=== PATIENT | female | born 1985 | race Caucasian/White ===

== ENCOUNTER 2018-01-08 18:44 | Emergency (ER) | payer SELFPAY ==
[2018-01-08 19:27] LABS: Urine Blood 3+ (NEG); Urine Glucose NEGATIVE (NEG); Urine Protein 1+ (NEG); Urine Specific Gravity >1.030 (1.005-1.030); Urine pH 5.5 (5.0-7.0)
[2018-01-08 20:04] LABS: Barbiturates NEGATIVE (NEGATIVE); Benzodiazepines NEGATIVE (NEGATIVE); Cocaine NEGATIVE (NEGATIVE); METHAMPHETAM NEGATIVE (NEGATIVE); Methadone NEGATIVE (NEGATIVE); Opiates NEGATIVE (NEGATIVE); Phencyclidine NEGATIVE (NEGATIVE); THC Cannibis POSITIVE (NEGATIVE)
[2018-01-08 20:30] LABS: Protime INR 1.14
[2018-01-08 20:37] LABS: Absolute Lymphocytes (CBC) 1.1 K/uL (0.7-4.9); Absolute Neutrophil 13.6 K/uL (1.8-8.0); Basophils % 0.1 % (0-1.3); Eosinophils % 0.7 % (0-4.4); Hematocrit 34.9 % (36.0-45.0); Lymphocytes % 6.8 % (15.3-44.8); MCH 29.7 pg (27.0-35.0); MCV 87.2 fL (80-100); MPV 9.4 fL (7.6-11.3); Monocytes % 6.5 % (3.3-12.3)
[2018-01-08] MEDS ORDERED: HYDROCODONE/APAP 7.5/325 MG TAB ONE (20:37)
[2018-01-08 21:15] LABS: ALT/SGPT 18 U/L (12-78); AST/SGOT 13 U/L (15-37); Albumin 3.8 g/dL (3.4-5.0); Alcohol Serum/Plasma < 3 mg/dL (<3); Alkaline Phosphatase 78 U/L (45-117); BUN Blood Urea Nitrogen 7 mg/dL (7-18); Bicarbonate 23 mmol/L (21-32); Bilirubin Direct 0.1 mg/dL (0-0.2); Bilirubin Total 0.5 mg/dL (0.2-1.0); Glucose Level 103 mg/dL (74-106); Lipase 77 U/L (73-393); Potassium 3.4 mmol/L (3.5-5.1); Protein, Total 7.3 g/dL (6.4-8.2); Sodium Level 140 mmol/L (136-145)
[2018-01-08 21:21] LABS: Blood Morphology Comment NOT SEEN (NOT SEEN); Platelet Estimate ADEQ; Urine White Blood Cell Casts OK
[2018-01-08] MEDS ORDERED: POTASSIUM CL SA 10 MEQ TAB PO ONE (21:39)
[2018-01-09 06:44] LABS: Absolute Lymphocytes (CBC) 1.6 K/uL (0.7-4.9); Absolute Monocytes 1.5 K/uL (0.1-1.3); Absolute Neutrophil 8.2 K/uL (1.8-8.0); Basophils % 0.3 % (0-1.3); Hematocrit 35.7 % (36.0-45.0); Lymphocytes % 13.9 % (15.3-44.8); MCH 29.8 pg (27.0-35.0); MPV 10.1 fL (7.6-11.3); RBC Red Blood Cell Count 4.15 M/uL (3.86-4.86)
--- NOTE | 2018-01-09 06:45 | EKG ---
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
[2018-01-09] MEDS ORDERED: IBUPROFEN 400 MG TAB ONE ×2 (07:19→18:13)
[2018-01-09 08:22] LABS: Platelet Estimate ADEQ
[2018-01-09 08:23] LABS: Blood Morphology Comment NOT SEEN (NOT SEEN)
--- NOTE | 2018-01-09 13:58 | EDPHYS ---
Physician Documentation [facility] Name: Arleen Bedolla Age: 32 yrs Sex: Female : 1985 Arrival Date: 01/08/2018 Time: 18:46 Bed 18 Private MD: ED Physician Mark Vann HPI: 01/08 21:38 This 32 yrs old Female presents to ER via EMS with complaints of Suicidal jr8 Ideation. 21:38 The patient presents to the emergency department with depression, suicide ideation, and jr8 the patient has a plan, wants to jump off of bridge or get hit by a car. Onset: The symptoms/episode began/occurred acutely, today. Past psychiatric history: Prior diagnosis: bipolar disorder, schizophrenia. Associated signs and symptoms: The patient has no apparent associated signs or symptoms. Severity of symptoms: At their worst the symptoms were moderate in the emergency department the symptoms are unchanged. The patient has experienced a previous episode. The patient has not recently seen a physician. Stated that after being in argument feels suicidal . 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 - Ebola Screening: : Patient negative for fever greater than or equal to 101.5 degrees Fahrenheit, and additional compatible Ebola Virus Disease symptoms Patient denies exposure to infectious person Patient denies travel to an Ebola-affected area in the 21 days before illness onset No symptoms or risks identified at this time. - Social history:: Smoking status: Patient/guardian denies using tobacco. ROS: 21:38 Eyes: Negative for injury, pain, redness, and discharge, ENT: Negative for injury, jr8 pain, and discharge, Neck: Negative for injury, pain, and swelling, Cardiovascular: Negative for chest pain, palpitations, and edema, Respiratory: Negative for shortness of breath, cough, wheezing, and pleuritic chest pain, Abdomen/GI: Negative for abdominal pain, nausea, vomiting, diarrhea, and constipation, Back: Negative for injury and pain, MS/Extremity: Negative for injury and deformity, Skin: Negative for injury, rash, and discoloration, Neuro: Negative for headache, weakness, numbness, tingling, and seizure. 21:38 Psych: Positive for depression, suicidal ideation, Negative for auditory hallucinations, visual hallucinations, homicidal ideation, insomnia, suicide gesture. Exam: 21:38 Eyes: Pupils equal round and reactive to light, extra-ocular motions intact. Lids and jr8 lashes normal. Conjunctiva and sclera are non-icteric and not injected. Cornea within normal limits. Periorbital areas with no swelling, redness, or edema. ENT: Nares patent. No nasal discharge, no septal abnormalities noted. Tympanic membranes are normal and external auditory canals are clear. Oropharynx with no redness, swelling, or masses, exudates, or evidence of obstruction, uvula midline. Mucous membranes moist. Neck: Trachea midline, no thyromegaly or masses palpated, and no cervical lymphadenopathy. Supple, full range of motion without nuchal rigidity, or vertebral point tenderness. No Meningismus. Cardiovascular: Regular rate and rhythm with a normal S1 and S2. No gallops, murmurs, or rubs. Normal PMI, no JVD. No pulse deficits. Respiratory: Lungs have equal breath sounds bilaterally, clear to auscultation and percussion. No rales, rhonchi or wheezes noted. No increased work of breathing, no retractions or nasal flaring. Abdomen/GI: Soft, non-tender, with normal bowel sounds. No distension or tympany. No guarding or rebound. No evidence of tenderness throughout. Back: No spinal tenderness. No costovertebral tenderness. Full range of motion. Skin: Warm, dry with normal turgor. Normal color with no rashes, no lesions, and no evidence of cellulitis. MS/ Extremity: Pulses equal, no cyanosis. Neurovascular intact. Full, normal range of motion. Neuro: Awake and alert, GCS 15, oriented to person, place, time, and situation. Cranial nerves II-XII grossly intact. Motor strength 5/5 in all extremities. Sensory grossly intact. Cerebellar exam normal. Normal gait. 21:38 Psych: Behavior/mood is suicidal, depressed, Affect is calm, Oriented to person, place, time, Patient having thoughts of suicide. Judgement / Insight is normal. Memory is normal. Delusions/hallucinations are not present. Vital Signs: 19:09 BP 102 / 70; Pulse 89; Resp 16; Temp 98.9(TE); Pulse Ox 99% on R/A; Weight 86.18 kg; iw Height 5 ft. 7 in. (170.18 cm); Pain 3/10; 21:57 BP 109 / 70; Pulse 106; Resp 18; Pulse Ox 97% on R/A; oe 01/09 00:02 BP 103 / 65; Pulse 85; Resp 18; Pulse Ox 100% on R/A; oe 03:17 BP 105 / 70; Pulse 90; Resp 18; Pulse Ox 100% on R/A; oe 07:03 BP 105 / 64; Pulse 95; Resp 18; Pulse Ox 97% on R/A; oe 11:08 BP 93 / 55 Supine; Pulse 83; Resp 16; Temp 97.6(O); Pulse Ox 98% on R/A; mh5 15:10 BP 96 / 64; Pulse 90; Resp 15; Pulse Ox 98% on R/A; 5 17:29 BP 105 / 75; Pulse 86; Resp 18; Pulse Ox 100% on R/A; 5 21:09 BP 103 / 50; Pulse 78; Resp 17; Pulse Ox 98% on R/A; mw2 01/10 01:11 BP 108 / 75; Pulse 68; Resp 17; Pulse Ox 98% on R/A; mw2 05:15 BP 98 / 70; Pulse 70; Resp 16; Pulse Ox 98% on R/A; mw2 09:01 BP 102 / 74; Pulse 74; Resp 14; Pulse Ox 100% on R/A; em1 13:39 BP 98 / 53; Pulse 75; Resp 17; Pulse Ox 100% on R/A; mh5 16:37 BP 100 / 68; Pulse 65; Resp 18; Pulse Ox 98% on R/A; mh5 20:37 BP 98 / 54; Pulse 68; Resp 16; Pulse Ox 99% on R/A; cc1 22:41 BP 108 / 64; Pulse 72; Resp 16; Pulse Ox 100% on R/A; cc1 01/11 01:04 BP 106 / 72; Pulse 72; Resp 16; Pulse Ox 100% on R/A; cc1 05:33 BP 102 / 62; Pulse 73; Resp 16; Pulse Ox 97% on R/A; Pain 8/10; oe 07:03 Temp 98.1(O); lp1 09:42 BP 102 / 61; Pulse 76; Resp 18; Pulse Ox 100% ; ms 12:40 rb1 01/08 19:09 Body Mass Index 29.76 (86.18 kg, 170.18 cm) iw 12:40 Pt. refused vital signs. rb1 MDM: 01/08 19:20 Patient medically screened. jr8 01/11 11:32 Data reviewed: vital signs, nurses notes, lab test result(s), EKG. Data interpreted: jr8 Pulse oximetry: on room air is 97 %. Interpretation: normal. Counseling: I had a detailed discussion with the patient and/or guardian regarding: the historical points, exam findings, and any diagnostic results supporting the discharge/admit diagnosis, lab results. ED course: Patient has been here for 2 and a 1/2 days now. Stated that she feels better and wants to go home. No longer suicidal. Will f/u on outpatient basis. [facility] was contacted and reassessed her last night. We talked to them as well today and are very comfortable with her following up on out patient basis . 01/08 19:21 Order name: Acetaminophen; Complete Time: 21:18 [facility] 01/08 19:21 Order name: Basic Metabolic Panel; Complete Time: 21:18 [facility] 01/08 19:21 Order name: CBC with Diff; Complete Time: 21:43 [facility] 01/08 19:21 Order name: ETOH Level; Complete Time: 21:18 [facility] 01/08 19:21 Order name: Hepatic Function; Complete Time: 21:18 [facility] 01/08 19:21 Order name: PT-INR; Complete Time: 20:31 [facility] 01/08 19:21 Order name: Ptt, Activated; Complete Time: 20:31 [facility] 01/08 19:21 Order name: Salicylate; Complete Time: 20:59 [facility] 01/08 19:21 Order name: Urine Drug Screen; Complete Time: 20:31 [facility] 01/08 19:21 Order name: Lipase; Complete Time: 21:18 [facility] 01/08 19:24 Order name: Urine Dipstick--Ancillary (enter results) [facility] 01/08 19:24 Order name: Urine --Ancillary (enter results) [facility] 01/08 19:24 Order name: Urine Dipstick-Ancillary; Complete Time: 19:30 [facility] 01/08 19:24 Order name: Urine --Ancillary; Complete Time: 19:30 [facility] 01/08 19:21 Order name: EKG; Complete Time: 19:22 [facility] 01/08 20:38 Order name: CBC Smear Scan; Complete Time: 21:43 [facility] 01/09 02:36 Order name: CBC with Manual Differential: repeat at 0600; Complete Time: 10:12 bs1 01/09 07:15 Order name: Diet Regular; Complete Time: 07:16 [facility] 01/08 19:21 Order name: Urine Test (obtain specimen); Complete Time: 19:23 [facility] 01/08 19:21 Order name: EKG - Nurse/Tech; Complete Time: 19:35 [facility] 01/08 19:21 Order name: Urine Dipstick-Ancillary (obtain specimen); Complete Time: 19:23 [facility] 01/09 09:21 Order name: Diet Regular; Complete Time: 09:22 [facility] 01/09 12:02 Order name: Diet Regular; Complete Time: 12:02 01/09 15:38 Order name: Diet Regular; Complete Time: 15:39 [facility] 01/09 18:15 Order name: Diet Regular; Complete Time: 18:15 [facility] 01/10 08:00 Order name: Diet Regular; Complete Time: 08:01 01/10 11:08 Order name: Finger Food [facility] 01/10 15:37 Order name: Diet Regular; Complete Time: 15:37 [facility] 01/11 07:15 Order name: Diet Finger Food; Complete Time: 07:16 rb1 01/11 12:06 Order name: Diet Finger Food; Complete Time: 12:06 rb1 Administered Medications: 01/08 19:36 Not Given (Patient Refused): NS 0.9% 1000 ml IV at 1000 ml once bp 20:35 Drug: Gaylord (7.5 mg-325 mg) 1 tabs Route: PO; bp 21:29 Follow up: Response: Pain is decreased bp 21:50 Drug: Potassium Chloride 20 mEq Route: PO; bp 22:12 Follow up: Response: No adverse reaction bp 01/09 07:56 Drug: Motrin 800 mg Route: PO; jl7 08:30 Follow up: Response: No adverse reaction; Pain is decreased jl7 18:11 Drug: Motrin 600 mg Route: PO; jl7 01/10 01:00 Follow up: Response: Pain is decreased bp 01/09 21:00 Drug: Gaylord (7.5 mg-325 mg) 1 tabs Route: PO; bp 01/10 01:00 Follow up: Response: Pain is decreased bp 07:53 Drug: Ibuprofen 800 mg Route: PO; ch 07:59 Follow up: Response: No adverse reaction; Marked relief of symptoms ch 15:20 Drug: Motrin 600 mg Route: PO; iw 18:56 Follow up: Response: No adverse reaction ph 20:52 Drug: Tylenol 500 mg Route: PO; lp1 22:42 Follow up: Response: No adverse reaction lp1 01/11 01:36 Drug: Motrin 600 mg Route: PO; lp1 02:30 Follow up: Response: No adverse reaction lp1 07:58 Not Given (changed order to 800 mg PO): Motrin 600 mg PO once rb1 08:00 Drug: Motrin 800 mg Route: PO; rb1 Disposition: 17:37 Co-signature as Attending Physician, Mark Vann MD I agree with the assessment and annette plan of care. Disposition: 01/11/18 12:43 Discharged to Home. Impression: Major depressive disorder, recurrent severe without psychotic features, Suicidal ideations. - Condition is Stable. - Discharge Instructions: Suicidal Feelings: How to Help Yourself, Helping Someone Who is Suicidal, Stress and Stress Management, Persistent Depressive Disorder, Major Depressive Disorder, [id number]. - Medication Reconciliation Form, Thank You Letter, Antibiotic Education, Prescription Opioid Use form. - Follow up: Private Physician; When: 2 - 3 days; Reason: Recheck today's complaints, Continuance of care, Re-evaluation by your physician. - Problem is new. - Symptoms are resolved. Signatures: Dispatcher [employer] EDMS Marilee Block RN RN ch Anderson, Corey, MD MD cha Williams, Irene, RN RN iw Rhoda Mirza RN RN lp1 Neil Reyes PA PA jr8 Naomie Parr RN RN rb1 Marie Styles RN RN jl7 Jesus Potter RN RN bp Hall, Patricia RN ph Corrections: (The following items were deleted from the chart) 01/08 19:36 19:21 IV Saline Lock ordered. jr8 bp 19:37 19:21 Labs collected and sent ordered. jr8 bp 01/10 10:28 01/08 19:09 PMHx: None; iw 01/11 12:43 01/09 13:58 01/09/2018 13:58 Transfer ordered to Psych Facility. Diagnosis is Suicidal jr8 ideations. Reason for transfer: Higher level of care. Accepting physician is to psych. Condition is Stable. Problem is new. Symptoms have improved. [facility] 01/11 13:08 12:43 01/11/2018 12:43 Discharged to Home. Impression: Major depressive disorder, rb1 recurrent severe without psychotic features; Suicidal ideations. Condition is Stable. Forms are Medication Reconciliation Form, Thank You Letter, Antibiotic Education, Prescription Opioid Use. Follow up: Private Physician; When: 2 - 3 days; Reason: Recheck today's complaints, Continuance of care, Re-evaluation by your physician. Problem is new. Symptoms are resolved. jr8
--- NOTE | 2018-01-09 13:58 | ER ---
Nurse's Notes [facility] Name: Arleen Bedolla Age: 32 yrs Sex: Female : 1985 Arrival Date: 01/08/2018 Time: 18:46 Bed 18 Private MD: Diagnosis: Major depressive disorder, recurrent severe without psychotic features;Suicidal ideations Presentation: 01/08 19:02 Presenting complaint: Patient states: "I've had suicidal thoughts all day, I got into a iw fight with my adoptive dad and I've been staying with a friend in [place], she [place] me off at the beach and I've been sitting at the beach all day" denies previous attempt, +hx of suicidal ideation, thoughts of jumping off bridge, pt also states she is hearing voices that sometimes make her angry but cannot tell me what they say, also sees "lights and shadows", pt also states she has RUQ pain that started about an hour ago, denies n/v/d, EMS reported that pt told them she has hx of cholecystectomy but still has pain from time to time from the scar tissue. Transition of care: patient was not received from another setting of care. Onset of symptoms was January 08, 2018. Risk Assessment: Do you want to hurt yourself or someone else? Patient reports desire/thoughts of hurting themselves or someone else. Provider notified. Initial Sepsis Screen: Does the patient meet any 2 criteria? No. Patient's initial sepsis screen is negative. Does the patient have a suspected source of infection? No. Patient's initial sepsis screen is negative. Care prior to arrival: None. 19:02 Method Of Arrival: EMS: [facility] iw 19:02 Acuity: AVILA 2 iw Triage Assessment: 19:15 General: Appears in no apparent distress. comfortable, obese, Behavior is cooperative, bp appropriate for age, anxious. General: Behavior is flat. Pain: Complains of pain in right upper quadrant. EENT: No deficits noted. Neuro: Level of Consciousness is awake, alert, obeys commands, Oriented to person, place, time, situation. Cardiovascular: No deficits noted. Respiratory: Airway is patent Respiratory effort is even, unlabored, Respiratory pattern is regular, symmetrical. GI: Patient currently denies diarrhea, nausea, vomiting. : No signs and/or symptoms were reported regarding the genitourinary system. Derm: No deficits noted. Musculoskeletal: Circulation, motion, and sensation intact. Range of motion: intact in all extremities. 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 - Ebola Screening: : Patient negative for fever greater than or equal to 101.5 degrees Fahrenheit, and additional compatible Ebola Virus Disease symptoms Patient denies exposure to infectious person Patient denies travel to an Ebola-affected area in the 21 days before illness onset No symptoms or risks identified at this time. - Social history:: Smoking status: Patient/guardian denies using tobacco. Screenin:17 Abuse screen: Denies threats or abuse. Denies injuries from another. Nutritional bp screening: No deficits noted. Tuberculosis screening: No symptoms or risk factors identified. Fall Risk None identified. Assessment: 19:15 General: PT RETURNED FROM SHOWER, PT STATES SI WITHOUT GESTURE/ATTEMPT 2/2 FAMILY bp STRESSORS. UNKNOWN PSYCH HX. 19:35 Reassessment: PT REFUSED PIV AND BLOOD DRAW, MD NOTIFIED. bp 19:48 Reassessment: PROVIDER SPOKE WITH PT. PT NOW AGREES TO LAB DRAW WITHOUT PIV. bp 23:47 Reassessment: [facility] SCREENER AT B/S. bp 01/09 01:45 Reassessment: Report received from STEPH Lee. bs1 01:45 General: Appears in no apparent distress. Pain: Denies pain. Neuro: Level of bs1 Consciousness is awake, alert. Cardiovascular: Heart tones S1 S2 present Capillary refill < 3 seconds Patient's skin is warm and dry. Respiratory: Airway is patent Trachea midline Respiratory effort is even, unlabored, Respiratory pattern is regular, symmetrical, Breath sounds are clear. GI: No signs and/or symptoms were reported involving the gastrointestinal system. GI: Bowel sounds present X 4 quads. Abd is soft and non tender X 4 quads. : No signs and/or symptoms were reported regarding the genitourinary system. EENT: No signs and/or symptoms were reported regarding the EENT system. Derm: Skin is intact. Musculoskeletal: Circulation, motion, and sensation intact. Capillary refill < 3 seconds, Range of motion: intact in all extremities. 02:23 Reassessment: [facility] called to speak with nurse to inform of wbc being above 15 and bs1 requesting to redraw labs then they will restart the process. Informed LINDSAY Trejo, gave verbal order to recheck labs in am at 0600. 05:05 Reassessment: Patient sleeping. Even respirations. No further needs at this time. bs1 07:10 Reassessment: Report given to STEPH Salazar. bs1 07:18 Reassessment: ERD notified of sunburn and pt requesting something for pain, see MAR for jl7 orders. Diet tray ordered at this time. General: Appears in no apparent distress. uncomfortable, Behavior is calm, cooperative. Pain: Complains of pain in Sunburn noted to all extremities and face Pain currently is 5 out of 10 on a pain scale. Quality of pain is described as "It just hurts." Is continuous. Neuro: Level of Consciousness is awake, alert, obeys commands, Oriented to person, place, time, situation. Cardiovascular: Heart tones S1 S2 present Patient's skin is warm and dry. Respiratory: Airway is patent Respiratory effort is even, unlabored, Respiratory pattern is regular, symmetrical. GI: Bowel sounds present X 4 quads. Abd is soft and non tender X 4 quads. Patient currently denies diarrhea, nausea, vomiting. : No signs and/or symptoms were reported regarding the genitourinary system. EENT: No signs and/or symptoms were reported regarding the EENT system. Derm: Skin is intact, Skin is dry, Skin is red, Skin temperature is warm. Musculoskeletal: No signs and/or symptoms reported regarding the musculoskeletal system. Range of motion: intact in all extremities. 08:39 Reassessment: Patient and/or family updated on plan of care and expected duration. Pain jl7 level reassessed. Patient is alert, oriented x 3, equal unlabored respirations, skin warm/dry/pink. 09:45 Reassessment: pt laying in bed with eyes closed, respirations even and unlabored, no jl7 signs of distress noted at this time. 11:00 Reassessment: No changes from previously documented assessment. jl7 12:00 Reassessment: Patient appears in no apparent distress at this time. Patient and/or jl7 family updated on plan of care and expected duration. Pain level reassessed. Patient is alert, oriented x 3, equal unlabored respirations, skin warm/dry/pink. 13:00 Reassessment: Patient appears in no apparent distress at this time. Pt laying in bed jl7 with eyes closed, respirations even and unlabored. 14:00 Reassessment: Patient appears in no apparent distress at this time. No changes from jl7 previously documented assessment. 15:00 Reassessment: No changes from previously documented assessment. Patient and/or family jl7 updated on plan of care and expected duration. Pain level reassessed. 18:38 Reassessment: Pt sitting in bed eating. No signs of distress noted at this time. jl7 19:00 Reassessment: RECD REPORT FROM MARIE CHOI. 32YO WF P/W SUNBURN AND SI. UNSPECIFIED PSYCH bp HX. PT CURRENTLY HOMELESS. SEEN BY [facility] LAST PM, INPATIENT RECOMMENDED. SITTER AT B/S, PLACEMENT PENDING. 01/10 00:00 Reassessment: PT SLEEPING, NO ACUTE S/S DISTRESS. SITTER AT B/S, PSYCH TRANSFER PENDING.bp 05:16 Reassessment: PT RE-EVAL BY , MAINTAINS +SI. RESTING QUIETLY, VS STABLE. bp 07:38 Reassessment: Patient appears in no apparent distress at this time. Patient and/or ch family updated on plan of care and expected duration. Pain level reassessed. Patient is alert, oriented x 3, equal unlabored respirations, skin warm/dry/pink. 07:55 Reassessment: Patient appears in no apparent distress at this time. pt states her ch sunburn hurts, pt medicated per orders, given some Neosporin ointment she can apply. pt is AAOX4, states she still wants to kill herself by jumping off a bridge. states she thinks she is hearing things, but cannot tell what they say. denies having attempted suicide before, but states she thinks about it often. pt states she has a hx of bipolar, schizophrenia, add, adhd, and depression. states she is not on any medications at this time for any psych issues. pt states if she leaves she wants to kill herself. 07:55 Respiratory: Airway is patent Respiratory effort is even, unlabored, Breath sounds are ch clear bilaterally. 10:27 Reassessment: Patient appears in no apparent distress at this time. Patient and/or ch family updated on plan of care and expected duration. Pain level reassessed. Patient is alert, oriented x 3, equal unlabored respirations, skin warm/dry/pink. pt ate her breakfast, awaiting transfer. no changes. 12:30 Reassessment: Patient appears in no apparent distress at this time. Patient and/or ph family updated on plan of care and expected duration. Pain level reassessed. Patient is alert, oriented x 3, equal unlabored respirations, skin warm/dry/pink. Pt resting quietly, awaiting transfer. 15:20 Reassessment: pt requesting pain medication for her sunburn, advised pt that she will iw be getting Motrin, pt states "Motrin doesn't work, only ibuprofen works" pt advised that the medications are the same, pt given Motrin 600 PO, pt then states "is that all y'all give to patients with winslow" pt advised that she will only receive Motrin and we can place ointment on her sunburn if she wishes. pt states "I been putting ointment". pt states "I don't need the attitude I was just asking a question". pt laying back in bed, resting with eyes closed. 15:49 Reassessment: pt talking to herself, states she is feeling anxious, was previously on iw clonazepam. 17:33 Reassessment: Patient appears in no apparent distress at this time. Patient and/or iw family updated on plan of care and expected duration. Pain level reassessed. Patient is alert, oriented x 3, equal unlabored respirations, skin warm/dry/pink. pt sitting up in bed eating. 17:41 Reassessment: [facility] reports that they are reviewing the chart at this ss moment. [facility] reports that the nurse is taking care of another patient at this time and will call back within thirty minutes for update. 17:44 Reassessment: [facility] reports that they have no bed available at this time and more than likely will have beds available tomorrow. 17:44 Reassessment: [facility] reports that they have no bed availability at this time. ss 17:44 Reassessment: [facility] reports that they never received ss clinicals, refaxed to [facility]. 19:30 Reassessment: Patient appears in no apparent distress at this time. Patient complaint lp1 of pain related to sunburn to abdomen and shoulders. General: Behavior is calm, cooperative. Respiratory: Respiratory effort is even, unlabored. Derm: Skin is intact, Skin is dry, Skin is red, Skin temperature is warm. 20:30 Reassessment: Patient appears in no apparent distress at this time. No changes from lp1 previously documented assessment. 22:30 Reassessment: Patient appears in no apparent distress at this time. Patient is alert, lp1 oriented x 3, equal unlabored respirations, skin warm/dry/pink. General: Behavior is calm, cooperative. 23:15 Reassessment: [facility] at bedside for re-evaluation. lp1 01/11 01:39 Reassessment: Patient requesting more pain medication at this time due to sunburn. lp1 Reassessment: Patient is alert, oriented x 3, equal unlabored respirations, skin warm/dry/pink. General: Behavior is calm, cooperative. 03:30 Reassessment: Patient resting, eyes closed, respirations unlabored. lp1 06:00 Reassessment: Patient appears in no apparent distress at this time. No changes from lp1 previously documented assessment. 07:00 General: Appears in no apparent distress. comfortable, Behavior is calm, cooperative. rb1 Neuro: Level of Consciousness is awake, alert, obeys commands, Oriented to person, place, time, situation. Cardiovascular: Capillary refill < 3 seconds in bilateral fingers. Respiratory: Airway is patent Respiratory effort is even, unlabored, Respiratory pattern is regular, symmetrical. Derm: Skin is dry, Skin is red, Skin temperature is warm. 08:00 Reassessment: Patient appears in no apparent distress at this time. No changes from rb1 previously documented assessment. Pt. denies having a plan to hurt herself or others. She wishes to be discharged and stated, "I do not want to go to [place]. I did tell them last night that I wanted to hurt myself, but I feel better today." Notified NATALIE Adame of the pt. request and for her to inform Dr. Antunez because I am unable to leave the pt. alone. 09:00 Reassessment: Patient appears in no apparent distress at this time. Patient and/or rb1 family updated on plan of care and expected duration. Pain level reassessed. Patient is alert, oriented x 3, equal unlabored respirations, skin warm/dry/pink. 10:00 Reassessment: Patient appears in no apparent distress at this time. No changes from rb1 previously documented assessment. 11:00 Reassessment: Patient and/or family updated on plan of care and expected duration. Pain rb1 level reassessed. Patient is alert, oriented x 3, equal unlabored respirations, skin warm/dry/pink. 11:47 Reassessment: spoke with [facility] administration to see if they have a bed ss available for patient if she was to be discharged to follow up outpatient. 11:51 Reassessment: [facility] staff states that they do not have any available beds at ss this time at the custodial and to call back at 1700 this evening to see if they had any individuals who did not show. 12:00 Reassessment: Patient appears in no apparent distress at this time. Patient and/or rb1 family updated on plan of care and expected duration. Pain level reassessed. Patient is alert, oriented x 3, equal unlabored respirations, skin warm/dry/pink. Pt. is requesting pain medication; provider notified. 12:52 Reassessment: Patient appears in no apparent distress at this time. No changes from rb1 previously documented assessment. Pt. is wanting to be discharged. Psych: 01/08 19:11 Subjective: Patient's mood is Hallucinations are auditory, visual, Having thoughts of iw suicide. Plan for suicide is jump off a bridge. Objective: Patient is cooperative, Speech is normal, Affect is flat. Interventions: Removed personal items and placed in bag. Patient placed in hospital gown. Suicide Risk Assessment: Sad Person Scale: Sex of patient: Female: Score 0 points. Age of patient: Score 1 point if patient 15-34. Depression: Score 1 point if signs of depression are present. Previous Attempt: Score 0 point if patient has not previously attempted suicide. 01/09 07:15 Safety Checks: Personal items have been removed. Door is open. No visitors are present jl7 at this time. Safety check continued by sitter. Pt denies substance abuse. Commitment: Patient will be a voluntary commitment. Vital Signs: 01/08 19:09 BP 102 / 70; Pulse 89; Resp 16; Temp 98.9(TE); Pulse Ox 99% on R/A; Weight 86.18 kg; iw Height 5 ft. 7 in. (170.18 cm); Pain 3/10; 21:57 BP 109 / 70; Pulse 106; Resp 18; Pulse Ox 97% on R/A; oe 01/09 00:02 BP 103 / 65; Pulse 85; Resp 18; Pulse Ox 100% on R/A; oe 03:17 BP 105 / 70; Pulse 90; Resp 18; Pulse Ox 100% on R/A; oe 07:03 BP 105 / 64; Pulse 95; Resp 18; Pulse Ox 97% on R/A; oe 11:08 BP 93 / 55 Supine; Pulse 83; Resp 16; Temp 97.6(O); Pulse Ox 98% on R/A; mh5 15:10 BP 96 / 64; Pulse 90; Resp 15; Pulse Ox 98% on R/A; 5 17:29 BP 105 / 75; Pulse 86; Resp 18; Pulse Ox 100% on R/A; 5 21:09 BP 103 / 50; Pulse 78; Resp 17; Pulse Ox 98% on R/A; 2 01/10 01:11 BP 108 / 75; Pulse 68; Resp 17; Pulse Ox 98% on R/A; 2 05:15 BP 98 / 70; Pulse 70; Resp 16; Pulse Ox 98% on R/A; 2 09:01 BP 102 / 74; Pulse 74; Resp 14; Pulse Ox 100% on R/A; em1 13:39 BP 98 / 53; Pulse 75; Resp 17; Pulse Ox 100% on R/A; mh5 16:37 BP 100 / 68; Pulse 65; Resp 18; Pulse Ox 98% on R/A; mh5 20:37 BP 98 / 54; Pulse 68; Resp 16; Pulse Ox 99% on R/A; cc1 22:41 BP 108 / 64; Pulse 72; Resp 16; Pulse Ox 100% on R/A; cc1 01/11 01:04 BP 106 / 72; Pulse 72; Resp 16; Pulse Ox 100% on R/A; cc1 05:33 BP 102 / 62; Pulse 73; Resp 16; Pulse Ox 97% on R/A; Pain 810; oe 07:03 Temp 98.1(O); lp1 09:42 BP 102 / 61; Pulse 76; Resp 18; Pulse Ox 100% ; ms 12:40 rb1 01/08 19:09 Body Mass Index 29.76 (86.18 kg, 170.18 cm) iw 12:40 Pt. refused vital signs. rb1 ED Course: 01/08 18:46 Patient arrived in ED. hj 18:59 Jesus Potter, STEPH is Primary Nurse. bp 19:08 Triage completed. iw 19:09 Neil Reyes PA is PHCP. jr8 19:09 Mark Vann MD is Attending Physician. jr8 19:09 Arm band placed on. iw 19:17 Patient has correct armband on for positive identification. Bed in low position. Call bp light in reach. Side rails up X2. SUICIDE PRECAUTIONS. 19:19 Safety checks: Items removed: yes. Door open/sign placed on door: yes. Family/friend oe present: no. Sitter present: Yes. 19:30 Safety checks: Items removed: yes. Door open/sign placed on door: yes. Family/friend oe present: no. Sitter present: Yes. 19:37 Urine Dipstick--Ancillary (enter results) Sent. bp 19:37 Urine --Ancillary (enter results) Sent. bp 19:45 Safety checks: Items removed: yes. Door open/sign placed on door: yes. Family/friend oe present: no. Sitter present: Yes. 20:00 Safety checks: Items removed: yes. Door open/sign placed on door: yes. Family/friend oe present: no. Sitter present: Yes. 20:15 Safety checks: Items removed: yes. Door open/sign placed on door: yes. Family/friend oe present: no. Sitter present: Yes. 20:30 Safety checks: Items removed: yes. Door open/sign placed on door: yes. Family/friend oe present: no. Sitter present: Yes. 20:45 Safety checks: Items removed: yes. Door open/sign placed on door: yes. Family/friend oe present: no. Sitter present: Yes. 21:00 Safety checks: Items removed: yes. Door open/sign placed on door: yes. Family/friend oe present: no. Sitter present: Yes. 21:15 Safety checks: Items removed: yes. Door open/sign placed on door: yes. Family/friend oe present: no. Sitter present: Yes. 21:30 Safety checks: Items removed: yes. Door open/sign placed on door: yes. Family/friend oe present: no. Sitter present: Yes. 21:45 Safety checks: Items removed: yes. Door open/sign placed on door: yes. Family/friend oe present: no. Sitter present: Yes. 22:00 Safety checks: Items removed: yes. Door open/sign placed on door: yes. Family/friend oe present: no. Sitter present: Yes. 22:15 Safety checks: Items removed: yes. Door open/sign placed on door: yes. Family/friend oe present: no. Sitter present: Yes. 22:30 Safety checks: Items removed: yes. Door open/sign placed on door: yes. Family/friend oe present: no. Sitter present: Yes. 22:45 Safety checks: Items removed: yes. Door open/sign placed on door: yes. Family/friend oe present: no. Sitter present: Yes. 23:00 Safety checks: Items removed: yes. Door open/sign placed on door: yes. Family/friend oe present: no. Sitter present: Yes. 23:15 Safety checks: Items removed: yes. Door open/sign placed on door: yes. Family/friend oe present: no. Sitter present: Yes. 23:30 Safety checks: Items removed: yes. Door open/sign placed on door: yes. Family/friend oe present: no. Sitter present: Yes. 23:45 Safety checks: Items removed: yes. Door open/sign placed on door: yes. Family/friend oe present: no. Sitter present: Yes. 01/09 00:00 Safety checks: Items removed: yes. Door open/sign placed on door: yes. Family/friend oe present: no. Sitter present: Yes. 00:15 Safety checks: Items removed: yes. Door open/sign placed on door: yes. Family/friend oe present: no. Sitter present: Yes. 00:30 Safety checks: Items removed: yes. Door open/sign placed on door: yes. Family/friend oe present: no. Sitter present: Yes. 00:45 Safety checks: Items removed: yes. Door open/sign placed on door: yes. Family/friend oe present: no. Sitter present: Yes. 01:00 Safety checks: Items removed: yes. Door open/sign placed on door: yes. Family/friend oe present: no. Sitter present: Yes. 01:15 Safety checks: Items removed: yes. Door open/sign placed on door: yes. Family/friend oe present: no. Sitter present: Yes. 01:30 Safety checks: Items removed: yes. Door open/sign placed on door: yes. Family/friend oe present: no. Sitter present: Yes. 01:45 Safety checks: Items removed: yes. Door open/sign placed on door: yes. Family/friend oe present: no. Sitter present: Yes. 02:00 Safety checks: Items removed: yes. Door open/sign placed on door: yes. Family/friend oe present: no. Sitter present: Yes. 02:15 Safety checks: Items removed: yes. Door open/sign placed on door: yes. Family/friend oe present: no. Sitter present: Yes. 02:18 Mojgan from [facility] called and stated that the Doctor application processor denied patient for rg2 history of violence and that she doesn't meet their admission criteria. 02:30 Safety checks: Items removed: yes. Door open/sign placed on door: yes. Family/friend oe present: no. Sitter present: Yes. 02:45 Safety checks: Items removed: yes. Door open/sign placed on door: yes. Family/friend oe present: no. Sitter present: Yes. 03:00 Safety checks: Items removed: yes. Door open/sign placed on door: yes. Family/friend oe present: no. Sitter present: Yes. 03:15 Safety checks: Items removed: yes. Door open/sign placed on door: yes. Family/friend oe present: no. Sitter present: Yes. 03:30 Safety checks: Items removed: yes. Door open/sign placed on door: yes. Family/friend oe present: no. Sitter present: Yes. 03:45 Safety checks: Items removed: yes. Door open/sign placed on door: yes. Family/friend oe present: no. Sitter present: Yes. 04:00 Safety checks: Items removed: yes. Door open/sign placed on door: yes. Family/friend oe present: no. Sitter present: Yes. 04:15 Safety checks: Items removed: yes. Door open/sign placed on door: yes. Family/friend oe present: no. Sitter present: Yes. 04:30 Safety checks: Items removed: yes. Door open/sign placed on door: yes. Family/friend oe present: no. Sitter present: Yes. 04:45 Safety checks: Items removed: yes. Door open/sign placed on door: yes. Family/friend oe present: no. Sitter present: Yes. 05:00 Safety checks: Items removed: yes. Door open/sign placed on door: yes. Family/friend oe present: no. Sitter present: Yes. 05:15 Safety checks: Items removed: yes. Door open/sign placed on door: yes. Family/friend oe present: no. Sitter present: Yes. 05:30 Safety checks: Items removed: yes. Door open/sign placed on door: yes. Family/friend oe present: no. Sitter present: Yes. 05:45 Safety checks: Items removed: yes. Door open/sign placed on door: yes. Family/friend oe present: no. Sitter present: Yes. 06:00 Safety checks: Items removed: yes. Door open/sign placed on door: yes. Family/friend oe present: no. Sitter present: Yes. 06:15 Safety checks: Items removed: yes. Door open/sign placed on door: yes. Family/friend oe present: no. Sitter present: Yes. 06:30 Safety checks: Items removed: yes. Door open/sign placed on door: yes. Family/friend oe present: no. Sitter present: Yes. 06:45 Safety checks: Items removed: yes. Door open/sign placed on door: yes. Family/friend oe present: no. Sitter present: Yes. 07:00 Safety checks: Items removed: yes. Door open/sign placed on door: yes. Family/friend oe present: no. Sitter present: Yes. 07:00 Safety checks: Items removed: yes. Door open/sign placed on door: yes. Family/friend mh5 present: no. Sitter present: Yes. 07:15 Safety checks: Items removed: yes. Door open/sign placed on door: yes. Family/friend mh5 present: no. Sitter present: Yes. 07:22 Primary Nurse role handed off by Jesus Potter RN jl7 07:22 Marie Styles RN is Primary Nurse. jl7 07:30 Safety checks: Items removed: yes. Door open/sign placed on door: yes. Family/friend mh5 present: no. Sitter present: Yes. 07:32 Warm blanket given. mh5 07:45 Safety checks: Items removed: yes. Door open/sign placed on door: yes. Family/friend mh5 present: no. Sitter present: Yes. 08:00 Safety checks: Items removed: yes. Door open/sign placed on door: yes. Family/friend mh5 present: no. Sitter present: Yes. 08:11 Oral care given. PERSONAL CARE AND CLEAN BED. 5 08:15 Safety checks: Items removed: yes. Door open/sign placed on door: yes. Family/friend mh5 present: no. Sitter present: Yes. 08:30 Safety checks: Items removed: yes. Door open/sign placed on door: yes. Family/friend mh5 present: no. Sitter present: Yes. 08:45 Safety checks: Items removed: yes. Door open/sign placed on door: yes. Family/friend mh5 present: no. Sitter present: Yes. 09:00 Diet: Patient given a regular meal tray. 5 09:00 Safety checks: Items removed: yes. Door open/sign placed on door: yes. Family/friend mh5 present: no. Sitter present: Yes. 09:15 Safety checks: Items removed: yes. Door open/sign placed on door: yes. Family/friend mh5 present: no. Sitter present: Yes. 09:30 Safety checks: Items removed: yes. Door open/sign placed on door: yes. Family/friend mh5 present: no. Sitter present: Yes. 09:45 Safety checks: Items removed: yes. Door open/sign placed on door: yes. Family/friend mh5 present: no. Sitter present: Yes. 10:00 Safety checks: Items removed: yes. Door open/sign placed on door: yes. Family/friend mh5 present: no. Sitter present: Yes. 10:15 Safety Checks: Personal items have been removed. The door is open or patient has been hj placed in a hallway bed/chair. There are no family/friend visitors at this time Sitter present at this time. 10:15 Safety checks: Items removed: yes. Door open/sign placed on door: yes. Family/friend mh5 present: no. Sitter present: Yes. 10:30 Safety checks: Items removed: yes. Door open/sign placed on door: yes. Family/friend mh5 present: no. Sitter present: Yes. 10:45 Safety checks: Items removed: yes. Door open/sign placed on door: yes. Family/friend mh5 present: no. Sitter present: Yes. 11:00 Safety checks: Items removed: yes. Door open/sign placed on door: yes. Family/friend mh5 present: no. Sitter present: Yes. 11:15 Safety checks: Items removed: yes. Door open/sign placed on door: yes. Family/friend mh5 present: no. Sitter present: Yes. 11:30 Safety checks: Door open/sign placed on door: yes. Family/friend present: no. Sitter eb present: Yes. 11:45 Safety checks: Items removed: yes. Door open/sign placed on door: yes. Family/friend mh5 present: no. Sitter present: Yes. 12:00 Safety checks: Items removed: yes. Door open/sign placed on door: yes. Family/friend eb present: no. Sitter present: Yes. 12:15 Safety checks: Items removed: yes. Door open/sign placed on door: yes. Family/friend eb present: no. Sitter present: Yes. 12:30 Safety checks: Items removed: yes. Door open/sign placed on door: yes. Family/friend eb present: no. Sitter present: Yes. 12:39 Diet: Patient given a regular meal tray. Tolerated well. eb 12:45 Safety checks: Items removed: yes. Door open/sign placed on door: yes. Family/friend eb present: no. Sitter present: Yes. 13:00 Safety checks: Items removed: yes. Door open/sign placed on door: yes. Family/friend eb present: no. Sitter present: Yes. 13:15 Safety checks: Items removed: yes. Door open/sign placed on door: yes. Family/friend eb present: no. Sitter present: Yes. 13:30 Safety checks: Items removed: yes. Door open/sign placed on door: yes. Family/friend eb present: no. Sitter present: Yes. 13:45 Safety checks: Items removed: yes. Door open/sign placed on door: yes. Family/friend eb present: no. Sitter present: Yes. 14:00 Safety checks: Items removed: yes. Door open/sign placed on door: yes. Family/friend eb present: no. Sitter present: Yes. 14:15 Safety checks: Items removed: yes. Door open/sign placed on door: yes. Family/friend eb present: no. Sitter present: Yes. 14:30 Safety checks: Items removed: yes. Door open/sign placed on door: yes. Family/friend eb present: no. Sitter present: Yes. 14:45 Safety checks: Items removed: yes. Door open/sign placed on door: yes. Family/friend eb present: no. Sitter present: Yes. 15:00 Safety checks: Items removed: yes. Door open/sign placed on door: yes. Family/friend mh5 present: no. Sitter present: Yes. 15:15 Safety checks: Items removed: yes. Door open/sign placed on door: yes. Family/friend mh5 present: no. Sitter present: Yes. 15:30 Safety checks: Items removed: yes. Door open/sign placed on door: yes. Family/friend mh5 present: no. Sitter present: Yes. 15:45 Safety checks: Items removed: yes. Door open/sign placed on door: yes. Family/friend mh5 present: no. Sitter present: Yes. 15:59 Assisted to bathroom. [id number] 16:00 Safety checks: Items removed: yes. Door open/sign placed on door: yes. Family/friend mh5 present: no. Sitter present: Yes. 16:15 Safety checks: Items removed: yes. Door open/sign placed on door: yes. Family/friend mh5 present: no. Sitter present: Yes. 16:25 Diet: Patient given a regular meal tray. mh5 16:30 Safety checks: Items removed: yes. Door open/sign placed on door: yes. Family/friend mh5 present: no. Sitter present: Yes. 16:45 Safety checks: Items removed: yes. Door open/sign placed on door: yes. Family/friend mh5 present: no. Sitter present: Yes. 17:00 Safety checks: Items removed: yes. Door open/sign placed on door: yes. Family/friend mh5 present: no. Sitter present: Yes. 17:15 Safety checks: Items removed: yes. Door open/sign placed on door: yes. Family/friend mh5 present: no. Sitter present: Yes. 17:30 Safety checks: Items removed: yes. Door open/sign placed on door: yes. Family/friend mh5 present: no. Sitter present: Yes. 17:45 Safety checks: Items removed: yes. Door open/sign placed on door: yes. Family/friend mh5 present: no. Sitter present: Yes. 18:00 Safety checks: Items removed: yes. Door open/sign placed on door: yes. Family/friend mh5 present: no. Sitter present: Yes. 18:15 Safety checks: Items removed: yes. Door open/sign placed on door: yes. Family/friend mh5 present: no. Sitter present: Yes. 18:22 Diet: Patient given a regular meal tray. mh5 18:30 Safety checks: Items removed: yes. Door open/sign placed on door: yes. Family/friend mh5 present: no. Sitter present: Yes. 18:45 Safety checks: Items removed: yes. Door open/sign placed on door: yes. Family/friend mh5 present: no. Sitter present: Yes. 19:00 Safety checks: Items removed: yes. Door open/sign placed on door: yes. Family/friend mw2 present: no. Sitter present: Yes. 19:01 Primary Nurse role handed off by Marie Styles, STEPH bp 19:01 Jesus Potter, STEPH is Primary Nurse. bp 19:15 Safety checks: Items removed: yes. Door open/sign placed on door: yes. Family/friend mw2 present: no. Sitter present: Yes. 19:30 Safety checks: Items removed: yes. Door open/sign placed on door: yes. Family/friend mw2 present: no. Sitter present: Yes. 19:45 Safety checks: Items removed: yes. Door open/sign placed on door: yes. Family/friend mw2 present: no. Sitter present: Yes. 20:00 Safety checks: Items removed: yes. Door open/sign placed on door: yes. Family/friend mw2 present: no. Sitter present: Yes. 20:15 Safety checks: Items removed: yes. Door open/sign placed on door: yes. Family/friend mw2 present: no. Sitter present: Yes. 20:15 Diet: Patient given juice. mw2 20:30 Safety checks: Items removed: yes. Door open/sign placed on door: yes. Family/friend mw2 present: no. Sitter present: Yes. 20:45 Safety checks: Items removed: yes. Door open/sign placed on door: yes. Family/friend mw2 present: no. Sitter present: Yes. 21:00 Safety checks: Items removed: yes. Door open/sign placed on door: yes. Family/friend mw2 present: no. Sitter present: Yes. 21:15 Safety checks: Items removed: yes. Door open/sign placed on door: yes. Family/friend mw2 present: no. Sitter present: Yes. 21:30 Safety checks: Items removed: yes. Door open/sign placed on door: yes. Family/friend mw2 present: no. Sitter present: Yes. 21:45 Safety checks: Items removed: yes. Door open/sign placed on door: yes. Family/friend mw2 present: no. Sitter present: Yes. 22:00 Safety checks: Items removed: yes. Door open/sign placed on door: yes. Family/friend mw2 present: no. Sitter present: Yes. 22:15 Safety checks: Items removed: yes. Door open/sign placed on door: yes. Family/friend mw2 present: no. Sitter present: Yes. 22:30 Safety checks: Items removed: yes. Door open/sign placed on door: yes. Family/friend mw2 present: no. Sitter present: Yes. 22:45 Safety checks: Items removed: yes. Door open/sign placed on door: yes. Family/friend mw2 present: no. Sitter present: Yes. 23:00 Safety checks: Items removed: yes. Door open/sign placed on door: yes. Family/friend mw2 present: no. Sitter present: Yes. 23:15 Safety checks: Items removed: yes. Door open/sign placed on door: yes. Family/friend mw2 present: no. Sitter present: Yes. 23:30 Safety checks: Items removed: yes. Door open/sign placed on door: yes. Family/friend mw2 present: no. Sitter present: Yes. 23:45 Safety checks: Items removed: yes. Door open/sign placed on door: yes. Family/friend mw2 present: no. Sitter present: Yes. 01/10 00:00 Safety checks: Items removed: yes. Door open/sign placed on door: yes. Family/friend mw2 present: no. Sitter present: Yes. 00:15 Safety checks: Items removed: yes. Door open/sign placed on door: yes. Family/friend mw2 present: no. Sitter present: Yes. 00:30 Safety checks: Items removed: yes. Door open/sign placed on door: yes. Family/friend mw2 present: no. Sitter present: Yes. 00:45 Safety checks: Items removed: yes. Door open/sign placed on door: yes. Family/friend mw2 present: no. Sitter present: Yes. 01:00 Safety checks: Items removed: yes. Door open/sign placed on door: yes. Family/friend mw2 present: no. Sitter present: Yes. 01:15 Safety checks: Items removed: yes. Door open/sign placed on door: yes. Family/friend mw2 present: no. Sitter present: Yes. 01:30 Safety checks: Items removed: yes. Door open/sign placed on door: yes. Family/friend mw2 present: no. Sitter present: Yes. :45 Safety checks: Items removed: yes. Door open/sign placed on door: yes. Family/friend mw2 present: no. Sitter present: Yes. 02:00 Safety checks: Items removed: yes. Door open/sign placed on door: yes. Family/friend mw2 present: no. Sitter present: Yes. 02:15 Safety checks: Items removed: yes. Door open/sign placed on door: yes. Family/friend mw2 present: no. Sitter present: Yes. 02:30 Safety checks: Items removed: yes. Door open/sign placed on door: yes. Family/friend mw2 present: no. Sitter present: Yes. 02:45 Safety checks: Items removed: yes. Door open/sign placed on door: yes. Family/friend mw2 present: no. Sitter present: Yes. 03:00 Safety checks: Items removed: yes. Door open/sign placed on door: yes. Family/friend mw2 present: no. Sitter present: Yes. 03:15 Safety checks: Items removed: yes. Door open/sign placed on door: yes. Family/friend mw2 present: no. Sitter present: Yes. 03:30 Safety checks: Items removed: yes. Door open/sign placed on door: yes. Family/friend mw2 present: no. Sitter present: Yes. 03:45 Safety checks: Items removed: yes. Door open/sign placed on door: yes. Family/friend mw2 present: no. Sitter present: Yes. 04:00 Safety checks: Items removed: yes. Door open/sign placed on door: yes. Family/friend mw2 present: no. Sitter present: Yes. 04:15 Safety checks: Items removed: yes. Door open/sign placed on door: yes. Family/friend mw2 present: no. Sitter present: Yes. 04:30 Safety checks: Items removed: yes. Door open/sign placed on door: yes. Family/friend mw2 present: no. Sitter present: Yes. 04:45 Safety checks: Items removed: yes. Door open/sign placed on door: yes. Family/friend mw2 present: no. Sitter present: Yes. 05:00 Safety checks: Items removed: yes. Door open/sign placed on door: yes. Family/friend mw2 present: no. Sitter present: Yes. 05:15 Safety checks: Items removed: yes. Door open/sign placed on door: yes. Family/friend mw2 present: no. Sitter present: Yes. 05:30 Safety checks: Items removed: yes. Door open/sign placed on door: yes. Family/friend mw2 present: no. Sitter present: Yes. 05:45 Safety checks: Items removed: yes. Door open/sign placed on door: yes. Family/friend mw2 present: no. Sitter present: Yes. 06:00 Safety checks: Items removed: yes. Door open/sign placed on door: yes. Family/friend mw2 present: no. Sitter present: Yes. 06:15 Safety checks: Items removed: yes. Door open/sign placed on door: yes. Family/friend mw2 present: no. Sitter present: Yes. 07:00 Safety checks: Items removed: yes. Door open/sign placed on door: yes. Family/friend em1 present: no. Sitter present: Yes. 07:15 Safety checks: Items removed: yes. Door open/sign placed on door: yes. Family/friend em1 present: no. Sitter present: Yes. 07:30 Safety checks: Items removed: yes. Door open/sign placed on door: yes. Family/friend em1 present: no. Sitter present: Yes. 07:45 Safety checks: Items removed: yes. Door open/sign placed on door: yes. Family/friend em1 present: no. Sitter present: Yes. 08:00 Safety checks: Items removed: yes. Door open/sign placed on door: yes. Family/friend em1 present: no. Sitter present: Yes. 08:17 Safety checks: Items removed: yes. Door open/sign placed on door: yes. Family/friend em1 present: no. Sitter present: Yes. 08:30 Safety checks: Items removed: yes. Door open/sign placed on door: yes. Family/friend em1 present: no. Sitter present: Yes. 09:00 Safety checks: Items removed: yes. Door open/sign placed on door: yes. Family/friend em1 present: no. Sitter present: Yes. 09:13 Safety checks: Items removed: yes. Door open/sign placed on door: yes. Family/friend em1 present: no. Sitter present: Yes. 09:32 Safety checks: Items removed: yes. Door open/sign placed on door: yes. Family/friend em1 present: no. Sitter present: Yes. 09:45 Safety checks: Items removed: yes. Door open/sign placed on door: yes. Family/friend em1 present: no. Sitter present: Yes. 10:03 Safety checks: Items removed: yes. Door open/sign placed on door: yes. Family/friend em1 present: no. Sitter present: Yes. 10:15 Safety checks: Items removed: yes. Door open/sign placed on door: yes. Family/friend em1 present: no. Sitter present: Yes. 10:27 Marilee Block RN is Primary Nurse. 10:30 Safety checks: Items removed: yes. Door open/sign placed on door: yes. Family/friend em1 present: no. Sitter present: Yes. 10:45 Safety checks: Items removed: yes. Door open/sign placed on door: yes. Family/friend em1 present: no. Sitter present: Yes. 11:04 Safety checks: Items removed: yes. Door open/sign placed on door: yes. Family/friend em1 present: no. Sitter present: Yes. 11:15 Safety checks: Items removed: yes. Door open/sign placed on door: yes. Family/friend em1 present: no. Sitter present: Yes. 11:30 Safety checks: Items removed: yes. Door open/sign placed on door: yes. Family/friend em1 present: no. Sitter present: Yes. 11:45 Safety checks: Items removed: yes. Door open/sign placed on door: yes. Family/friend mh5 present: no. Sitter present: Yes. 12:00 Safety checks: Items removed: yes. Door open/sign placed on door: yes. Family/friend mh5 present: no. Sitter present: Yes. 12:15 Safety checks: Items removed: yes. Door open/sign placed on door: yes. Family/friend mh5 present: no. Sitter present: Yes. 12:30 Safety checks: Items removed: yes. Door open/sign placed on door: yes. Family/friend mh5 present: no. Sitter present: Yes. Diet: Patient given a regular meal tray. 12:45 Safety checks: Items removed: yes. Door open/sign placed on door: yes. Family/friend mh5 present: no. Sitter present: Yes. 13:00 Safety checks: Items removed: yes. Door open/sign placed on door: yes. Family/friend mh5 present: no. Sitter present: Yes. 13:14 Diet: Patient given a regular meal tray. mh5 13:15 Safety checks: Items removed: yes. Door open/sign placed on door: yes. Family/friend mh5 present: no. Sitter present: Yes. 13:30 Safety checks: Items removed: yes. Door open/sign placed on door: yes. Family/friend mh5 present: no. Sitter present: Yes. 13:45 Safety checks: Items removed: yes. Door open/sign placed on door: yes. Family/friend mh5 present: no. Sitter present: Yes. 14:00 Safety checks: Items removed: yes. Door open/sign placed on door: yes. Family/friend mh5 present: no. Sitter present: Yes. 14:15 Safety checks: Items removed: yes. Door open/sign placed on door: yes. Family/friend mh5 present: no. Sitter present: Yes. 14:30 Safety checks: Items removed: yes. Door open/sign placed on door: yes. Family/friend mh5 present: no. Sitter present: Yes. 14:44 Oral care given. SHOWER AND ORAL CARE. Shower given. mh5 15:00 Safety checks: Items removed: yes. Door open/sign placed on door: yes. Family/friend mh5 present: no. Sitter present: Yes. 15:15 Safety checks: Items removed: yes. Door open/sign placed on door: yes. Family/friend mh5 present: no. Sitter present: Yes. 15:30 Safety checks: Items removed: yes. Door open/sign placed on door: yes. Family/friend mh5 present: no. Sitter present: Yes. 15:40 Assisted to bedside commode. mh5 15:45 Safety checks: Items removed: yes. Door open/sign placed on door: yes. Family/friend mh5 present: no. Sitter present: Yes. 16:00 Safety checks: Items removed: yes. Door open/sign placed on door: yes. Family/friend mh5 present: no. Sitter present: Yes. 16:15 Safety checks: Items removed: yes. Door open/sign placed on door: yes. Family/friend mh5 present: no. Sitter present: Yes. 16:30 Safety checks: Items removed: yes. Door open/sign placed on door: yes. Family/friend mh5 present: no. Sitter present: Yes. 16:45 Safety checks: Items removed: yes. Door open/sign placed on door: yes. Family/friend mh5 present: no. Sitter present: Yes. 17:00 Safety checks: Items removed: yes. Door open/sign placed on door: yes. Family/friend mh5 present: no. Sitter present: Yes. 17:15 Safety checks: Items removed: yes. Door open/sign placed on door: yes. Family/friend mh5 present: no. Sitter present: Yes. 17:29 Diet: Patient given a regular meal tray. mh5 17:30 Safety checks: Items removed: yes. Door open/sign placed on door: yes. Family/friend mh5 present: no. Sitter present: Yes. 17:45 Safety checks: Items removed: yes. Door open/sign placed on door: yes. Family/friend em1 present: no. Sitter present: Yes. 18:00 Safety checks: Items removed: yes. Door open/sign placed on door: yes. Family/friend em1 present: no. Sitter present: Yes. 18:15 Safety checks: Items removed: yes. Door open/sign placed on door: yes. Family/friend em1 present: no. Sitter present: Yes. 18:30 Safety checks: Items removed: yes. Door open/sign placed on door: yes. Family/friend em1 present: no. Sitter present: Yes. 18:45 Safety checks: Items removed: yes. Door open/sign placed on door: yes. Family/friend em1 present: no. Sitter present: Yes. 19:00 Safety checks: Items removed: Door open/sign placed on door: yes. Family/friend cc1 present: no. Sitter present: Yes. 19:15 Safety checks: Items removed: yes. Door open/sign placed on door: yes. Sitter present: cc1 Yes. 19:30 Safety checks: Items removed: yes. Door open/sign placed on door: yes. Family/friend cc1 present: no. Sitter present: Yes. 19:45 Safety checks: Items removed: yes. Door open/sign placed on door: yes. Family/friend cc1 present: no. Sitter present: Yes. 19:54 No provider procedures requiring assistance completed. lp1 20:00 Safety checks: Items removed: yes. Door open/sign placed on door: yes. Family/friend cc1 present: no. Sitter present: Yes. 20:15 Safety checks: Items removed: yes. Door open/sign placed on door: yes. Family/friend cc1 present: no. Sitter present: Yes. 20:30 Safety checks: Items removed: yes. Door open/sign placed on door: yes. Family/friend cc1 present: no. Sitter present: Yes. 20:45 Safety checks: Items removed: yes. Door open/sign placed on door: yes. Family/friend cc1 present: no. Sitter present: Yes. 21:00 Safety checks: Items removed: yes. Door open/sign placed on door: yes. Family/friend cc1 present: no. Sitter present: Yes. 21:15 Safety checks: Items removed: yes. Door open/sign placed on door: yes. Family/friend cc1 present: no. Sitter present: Yes. 21:30 Safety checks: Items removed: yes. Door open/sign placed on door: yes. Family/friend cc1 present: no. Sitter present: Yes. 21:45 Safety checks: Items removed: yes. Door open/sign placed on door: yes. Family/friend cc1 present: no. Sitter present: Yes. 22:00 Safety checks: Items removed: yes. Door open/sign placed on door: yes. Family/friend cc1 present: no. Sitter present: Yes. 22:15 Safety checks: Items removed: yes. Door open/sign placed on door: yes. Family/friend cc1 present: no. Sitter present: Yes. 22:30 Safety checks: Items removed: yes. Door open/sign placed on door: yes. Family/friend cc1 present: no. Sitter present: Yes. 22:45 Safety checks: Items removed: yes. Door open/sign placed on door: yes. Family/friend cc1 present: no. Sitter present: Yes. 23:00 Safety checks: Items removed: yes. Door open/sign placed on door: yes. Family/friend cc1 present: no. Sitter present: Yes. 23:15 Safety checks: Items removed: yes. Door open/sign placed on door: yes. Family/friend cc1 present: no. Sitter present: Yes. 23:30 Safety checks: Items removed: yes. Door open/sign placed on door: yes. Family/friend cc1 present: no. Sitter present: Yes. 23:45 Safety checks: Items removed: yes. Door open/sign placed on door: yes. Family/friend cc1 present: no. Sitter present: Yes. 01/11 00:00 Safety checks: Items removed: yes. Door open/sign placed on door: yes. Family/friend cc1 present: no. Sitter present: Yes. 00:15 Safety checks: Items removed: yes. Door open/sign placed on door: yes. Family/friend cc1 present: no. Sitter present: Yes. 00:30 Safety checks: Items removed: yes. Door open/sign placed on door: yes. Family/friend cc1 present: no. Sitter present: Yes. 00:45 Safety checks: Items removed: yes. Door open/sign placed on door: yes. Family/friend cc1 present: no. Sitter present: Yes. 01:00 Safety checks: Items removed: yes. Door open/sign placed on door: yes. Family/friend cc1 present: no. Sitter present: Yes. 01:15 Safety checks: Items removed: yes. Door open/sign placed on door: yes. Family/friend oe present: no. Sitter present: Yes. 01:30 Safety checks: Items removed: yes. Door open/sign placed on door: yes. Family/friend oe present: no. Sitter present: Yes. 01:45 Safety checks: Items removed: yes. Door open/sign placed on door: yes. Family/friend oe present: no. Sitter present: Yes. 02:00 Safety checks: Items removed: yes. Door open/sign placed on door: yes. Family/friend oe present: no. Sitter present: Yes. 02:15 Safety checks: Items removed: yes. Door open/sign placed on door: yes. Family/friend oe present: no. Sitter present: Yes. 02:30 Safety checks: Items removed: yes. Door open/sign placed on door: yes. Family/friend oe present: no. Sitter present: Yes. 02:45 Safety checks: Items removed: yes. Door open/sign placed on door: yes. Family/friend oe present: no. Sitter present: Yes. 03:00 Safety checks: Items removed: yes. Door open/sign placed on door: yes. Family/friend oe present: no. Sitter present: Yes. 03:15 Safety checks: Items removed: yes. Door open/sign placed on door: yes. Family/friend oe present: no. Sitter present: Yes. 03:30 Safety checks: Items removed: yes. Door open/sign placed on door: yes. Family/friend oe present: no. Sitter present: Yes. 03:45 Safety checks: Items removed: yes. Door open/sign placed on door: yes. Family/friend oe present: no. Sitter present: Yes. 04:00 Safety checks: Items removed: yes. Door open/sign placed on door: yes. Family/friend oe present: no. Sitter present: Yes. 04:15 Safety checks: Items removed: yes. Door open/sign placed on door: yes. Family/friend oe present: no. Sitter present: Yes. 04:30 Safety checks: Items removed: yes. Door open/sign placed on door: yes. Family/friend oe present: no. Sitter present: Yes. 04:45 Safety checks: Items removed: yes. Door open/sign placed on door: yes. Family/friend oe present: no. Sitter present: Yes. 05:00 Safety checks: Items removed: yes. Door open/sign placed on door: yes. Family/friend oe present: no. Sitter present: Yes. 05:15 Safety checks: Items removed: yes. Door open/sign placed on door: yes. Family/friend oe present: no. Sitter present: Yes. 05:30 Safety checks: Items removed: yes. Door open/sign placed on door: yes. Family/friend oe present: no. Sitter present: Yes. 05:45 Safety checks: Items removed: yes. Door open/sign placed on door: yes. Family/friend oe present: no. Sitter present: Yes. 06:00 Safety checks: Items removed: yes. Door open/sign placed on door: yes. Family/friend oe present: no. Sitter present: Yes. 06:15 Safety checks: Items removed: yes. Door open/sign placed on door: yes. Family/friend oe present: no. Sitter present: Yes. 06:30 Safety checks: Items removed: yes. Door open/sign placed on door: yes. Family/friend oe present: no. Sitter present: Yes. 06:45 Safety checks: Items removed: yes. Door open/sign placed on door: yes. Family/friend oe present: no. Sitter present: Yes. 07:00 Safety Checks: Personal items have been removed. The door is open or patient has been rb1 placed in a hallway bed/chair. There are no family/friend visitors at this time Sitter present at this time. 07:00 Safety checks: Items removed: yes. Door open/sign placed on door: yes. Family/friend oe present: no. Sitter present: Yes. 07:15 Safety Checks: Personal items have been removed. The door is open or patient has been rb1 placed in a hallway bed/chair. There are no family/friend visitors at this time Sitter present at this time. 07:30 Safety Checks: Personal items have been removed. The door is open or patient has been rb1 placed in a hallway bed/chair. There are no family/friend visitors at this time Sitter present at this time. 07:45 Safety Checks: Personal items have been removed. The door is open or patient has been rb1 placed in a hallway bed/chair. There are no family/friend visitors at this time Sitter present at this time. 08:00 Safety Checks: Personal items have been removed. The door is open or patient has been rb1 placed in a hallway bed/chair. There are no family/friend visitors at this time Sitter present at this time. 08:15 Safety Checks: Personal items have been removed. The door is open or patient has been tw2 placed in a hallway bed/chair. There are no family/friend visitors at this time Sitter present at this time. Other: pt ambulates to bathroom at this time. 08:27 Safety checks: Items removed: yes. Door open/sign placed on door: yes. Family/friend ms present: no. Sitter present: Yes. 08:30 Safety checks: Items removed: yes. Door open/sign placed on door: yes. Family/friend ms present: no. Sitter present: Yes. 08:30 Diet: Patient given a regular meal tray. ms 08:45 Safety checks: Items removed: yes. Door open/sign placed on door: yes. Family/friend ms present:. 09:00 Safety checks: Items removed: yes. Door open/sign placed on door: yes. Family/friend ms present: no. Sitter present: Yes. 09:15 Safety checks: Items removed: yes. Door open/sign placed on door: yes. Family/friend ms present: no. Sitter present: Yes. 09:30 Safety checks: Items removed: yes. Door open/sign placed on door: yes. Family/friend ms present: no. Sitter present: Yes. 09:45 Safety checks: Items removed: yes. Door open/sign placed on door: yes. Family/friend ms present: no. Sitter present: Yes. 10:00 Safety checks: Items removed: yes. Door open/sign placed on door: yes. Family/friend ms present: no. Sitter present: Yes. 10:15 Safety checks: Items removed: yes. Door open/sign placed on door: yes. Family/friend ms present: no. Sitter present: Yes. 10:29 's called to let us know that they should be getting some discharges today and eb once that happens they will call us back to start the transfer process. 10:30 Safety checks: Items removed: yes. Door open/sign placed on door: yes. Family/friend ms present: no. Sitter present: Yes. 10:45 Safety checks: Items removed: yes. Door open/sign placed on door: yes. Family/friend ms present: no. Sitter present: Yes. 11:00 Safety checks: Items removed: yes. Door open/sign placed on door: yes. Family/friend ms present: no. Sitter present: Yes. 11:15 Safety checks: Items removed: yes. Door open/sign placed on door: yes. Family/friend ms present: no. Sitter present: Yes. 11:30 Safety checks: Items removed: yes. Door open/sign placed on door: yes. Family/friend ms present: no. Sitter present: Yes. 11:45 Safety checks: Items removed: yes. Door open/sign placed on door: yes. Family/friend ms present: no. Sitter present: Yes. 12:00 Safety checks: Items removed: yes. Door open/sign placed on door: yes. Family/friend ms present: no. Sitter present: No. 12:15 Safety checks: Items removed: yes. Door open/sign placed on door: yes. Family/friend ms present: no. Sitter present: No. 12:30 Safety checks: Items removed: yes. Door open/sign placed on door: yes. Family/friend ms present: no. Sitter present: Yes. 12:45 Safety checks: Items removed: yes. Door open/sign placed on door: yes. Family/friend ms present: no. Sitter present: Yes. 13:08 Patient did not have IV access during this emergency room visit. rb1 Administered Medications: 01/08 19:36 Not Given (Patient Refused): NS 0.9% 1000 ml IV at 1000 ml once bp 20:35 Drug: Cade (7.5 mg-325 mg) 1 tabs Route: PO; bp 21:29 Follow up: Response: Pain is decreased bp 21:50 Drug: Potassium Chloride 20 mEq Route: PO; bp 22:12 Follow up: Response: No adverse reaction bp 01/09 07:56 Drug: Motrin 800 mg Route: PO; jl7 08:30 Follow up: Response: No adverse reaction; Pain is decreased jl7 18:11 Drug: Motrin 600 mg Route: PO; jl7 01/10 01:00 Follow up: Response: Pain is decreased bp 01/09 21:00 Drug: Cade (7.5 mg-325 mg) 1 tabs Route: PO; bp 01/10 01:00 Follow up: Response: Pain is decreased bp 07:53 Drug: Ibuprofen 800 mg Route: PO; ch 07:59 Follow up: Response: No adverse reaction; Marked relief of symptoms ch 15:20 Drug: Motrin 600 mg Route: PO; iw 18:56 Follow up: Response: No adverse reaction ph 20:52 Drug: Tylenol 500 mg Route: PO; lp1 22:42 Follow up: Response: No adverse reaction lp1 01/11 01:36 Drug: Motrin 600 mg Route: PO; lp1 02:30 Follow up: Response: No adverse reaction lp1 07:58 Not Given (changed order to 800 mg PO): Motrin 600 mg PO once rb1 08:00 Drug: Motrin 800 mg Route: PO; rb1 Outcome: 01/09 13:58 ER care complete, transfer ordered by MD. bryant 01/11 12:43 Discharge ordered by MD. ball 13:08 Patient left the ED. rb1 13:08 Discharged to home ambulatory. rb1 13:08 Condition: stable 13:08 Discharge instructions given to patient, Instructed on discharge instructions, follow up and referral plans. Demonstrated understanding of instructions, follow-up care, Prescriptions given X none Signatures: Valentín Spain rg2 Marilee Block RN RN ch Anderson, Corey, MD MD cha Williams Krystin, RN RN Sherlyn Perdue ms, Brandt em1 Wendi Kent, RN RN ss Rhoda Mirza, RN RN lp1 Neil Reyes PA PA jr8 Perico Rivera cc1 Itzel Mcmanus, RN RN ph Jorgito Munoz, RN RN hj Naomie Parr, RN RN rb1 Jennifer Gallego, RN RN tw2 Tanisha, Sherlyn An 5 Marie Styles, RN RN jl7 Jesus Potter, RN RN bp Danna Ferreira, RN RN bs1 Syd, Fabienne 2 Estrellita David Corrections: (The following items were deleted from the chart) 01/08 20:04 19:59 Safety checks: Items removed: yes. Door open/sign placed on door: yes. oe Family/friend present: no. Sitter present: Yes. oe 20:32 20:28 Safety checks: Items removed: yes. Door open/sign placed on door: yes. oe Family/friend present: no. Sitter present: Yes. oe 20:59 20:29 Safety checks: Items removed: yes. Door open/sign placed on door: yes. oe Family/friend present: no. Sitter present: Yes. oe 21:00 20:29 Safety checks: Items removed: yes. Door open/sign placed on door: yes. oe Family/friend present: no. Sitter present: Yes. oe 21:18 21:00 Safety checks: Items removed: yes. Door open/sign placed on door: yes. oe Family/friend present: no. Sitter present: Yes. oe 21:26 21:01 Safety checks: Items removed: yes. Door open/sign placed on door: yes. oe Family/friend present: no. Sitter present: Yes. oe 21:32 21:01 Safety checks: Items removed: yes. Door open/sign placed on door: yes. oe Family/friend present: no. Sitter present: Yes. oe 21:45 21:32 Safety checks: Items removed: yes. Door open/sign placed on door: yes. oe Family/friend present: no. Sitter present: Yes. oe 22:08 21:33 Safety checks: Items removed: yes. Door open/sign placed on door: yes. oe Family/friend present: no. Sitter present: Yes. oe 22:33 22:16 Safety checks: Items removed: yes. Door open/sign placed on door: yes. oe Family/friend present: no. Sitter present: Yes. oe 23:50 22:40 Safety checks: Items removed: yes. Door open/sign placed on door: yes. oe Family/friend present: no. Sitter present: Yes. oe 23:50 22:40 Safety checks: Items removed: yes. Door open/sign placed on door: yes. oe Family/friend present: no. Sitter present: Yes. oe 01/09 00:16 01/08 23:52 Safety checks: Items removed: yes. Door open/sign placed on door: yes. oe Family/friend present: no. Sitter present: Yes. oe 01/09 00:16 01/08 23:53 Safety checks: Items removed: yes. Door open/sign placed on door: yes. oe Family/friend present: no. Sitter present: Yes. oe 01/09 01:05 00:07 Safety checks: Items removed: yes. Door open/sign placed on door: yes. oe Family/friend present: no. Sitter present: Yes. oe 02:22 01:40 Safety checks: Items removed: yes. Door open/sign placed on door: yes. oe Family/friend present: no. Sitter present: Yes. oe 03:30 02:47 Safety checks: Items removed: yes. Door open/sign placed on door: yes. oe Family/friend present: no. Sitter present: Yes. oe 04:27 04:26 Safety checks: Items removed: yes. Door open/sign placed on door: yes. oe Family/friend present: no. Sitter present: Yes. oe 05:47 04:27 Safety checks: Items removed: yes. Door open/sign placed on door: yes. oe Family/friend present: no. Sitter present: Yes. oe 05:48 04:27 Safety checks: Items removed: yes. Door open/sign placed on door: yes. oe Family/friend present: no. Sitter present: Yes. oe 07:14 07:12 Safety checks: Items removed: yes. Door open/sign placed on door: yes. mh5 Family/friend present: no. Sitter present: Yes. mh5 10:18 10:15 Patient is placed in psych hold hj hj 14:01 13:59 Safety checks: eb eb 01/10 10:28 01/08 19:09 PMHx: None; iw ch 01/10 15:26 15:20 Reassessment: pt requesting pain medication for her sunburn, advised pt that she iw will be getting Motrin, pt states "Motrin doesn't work, only ibuprofen works" pt advised that the medications are the same, pt given Motrin 600 PO, pt then states "is that all y'all give to patients with winslow" pt advised that she will only receive Motrin and we can place ointment on her sunburn if she wishes. pt states "I been putting ointment" iw 20:04 20:02 Safety checks: Items removed: yes. Door open/sign placed on door: yes. cc1 Family/friend present: no. Sitter present: Yes. cc1 20:20 20:18 Safety checks: Items removed: yes. Door open/sign placed on door: yes. cc1 Family/friend present: no. Sitter present: Yes. cc1 21:16 20:15 Safety checks: Items removed: yes. Door open/sign placed on door: yes. cc1 Family/friend present: no. Sitter present: Yes. cc1 23:15 23:13 Safety checks: Items removed: yes. Door open/sign placed on door: yes. cc1 Family/friend present: no. Sitter present: Yes. cc1 01/11 00:47 00:46 Safety checks: Items removed: yes. Door open/sign placed on door: yes. cc1 Family/friend present: no. Sitter present: Yes. cc1 05:08 04:39 Safety checks: Items removed: oe oe 05:08 04:39 Safety checks: Items removed: yes. Door open/sign placed on door: yes. oe Family/friend present: no. Sitter present: Yes. oe 06:23 06:11 Safety checks: Items removed: yes. Door open/sign placed on door: yes. oe Family/friend present: no. Sitter present: Yes. oe 06:35 06:12 Safety checks: Items removed: yes. Door open/sign placed on door: yes. oe Family/friend present: no. Sitter present: Yes. oe 06:53 06:30 Safety checks: Items removed: yes. Door open/sign placed on door: yes. oe Family/friend present: no. Sitter present: Yes. oe 07: 06:13 Safety checks: Items removed: yes. Door open/sign placed on door: yes. oe Family/friend present: no. Sitter present: Yes. oe 07: 06:53 Safety checks: Items removed: yes. Door open/sign placed on door: yes. oe Family/friend present: no. Sitter present: Yes. oe 12:38 12:20 Safety checks: Items removed: yes. Door open/sign placed on door: yes. ms Family/friend present: no. Sitter present: No. ms
[2018-01-09] MEDS ORDERED: IBUPROFEN 200 MG TAB PO ONE (18:13)
[2018-01-09] MEDS ORDERED: HYDROCODONE/APAP 7.5/325 MG TAB ONE (20:42)
[2018-01-10] MEDS ORDERED: IBUPROFEN 200 MG TAB PO ONE ×2 (07:50→15:21)
[2018-01-10] MEDS ORDERED: ACETAMINOPHEN 500 MG TAB ONE (20:54)
[2018-01-11] MEDS ORDERED: IBUPROFEN 400 MG TAB ONE ×2 (01:38→07:56)
[2018-01-11] MEDS ORDERED: IBUPROFEN 200 MG TAB PO ONE (01:39)
== END 2018-01-11 13:08 | disposition home or self-care (01) ==
LOC: ER 18:44
DX: R45.851 Suicidal ideations (principal); F32.9 Major depressive disorder, single episode, unspecified
CPT/HCPCS: 36415; 80048; 80076; 80307; 80320; 80329; 81003; 81025; 83690; 85025; 85610; 85730; 93005; 99285